=== PATIENT | male | born 1975 | race Caucasian/White ===

== ENCOUNTER → 2019-08-07 13:27 | Outpatient (BNVA) | payer BC, SELFPAY | PROVIDERS: Family Provider Nurse Practitioner; PCP Nurse Practitioner; Visit Provider Specialist | DX: G43.711 Chronic migraine without aura, intractable, with status migrainosus (principal); F07.81 Postconcussional syndrome | CPT/HCPCS: 99213 ==

== ENCOUNTER → 2019-11-15 10:34 | Outpatient (BNVA) | payer BC, SELFPAY | PROVIDERS: Family Provider Nurse Practitioner; PCP Nurse Practitioner; Visit Provider Family Medicine | DX: M10.9 Gout, unspecified (principal); R05 Cough; Z20.828 Contact with and (suspected) exposure to other viral communicable diseases; M10.079 Idiopathic gout, unspecified ankle and foot; E78.5 Hyperlipidemia, unspecified | CPT/HCPCS: 80061; 84550; 85025; 87635 ==

== ENCOUNTER → 2020-02-03 09:15 | Outpatient (BNVA) | payer BC, SELFPAY | PROVIDERS: Family Provider Nurse Practitioner; PCP Nurse Practitioner; Visit Provider Specialist | DX: G43.711 Chronic migraine without aura, intractable, with status migrainosus (principal) | CPT/HCPCS: 99212 ==

== ENCOUNTER → 2020-03-26 17:33 | Outpatient (BNVA) | payer BC, SELFPAY | PROVIDERS: Family Provider Nurse Practitioner; PCP Nurse Practitioner; Visit Provider Nurse Practitioner Family | DX: Z11.59 Encounter for screening for other viral diseases (principal) | CPT/HCPCS: 87635 ==

== ENCOUNTER 2020-03-30 13:19 | Outpatient (CLI) | payer BC, SELFPAY ==
--- NOTE | 2020-03-30 13:25 | XR_ITS ---
WS: [id number] THORACIC SPINE TECHNIQUE: 3 views of the thoracic spine CLINICAL INFORMATION: Pain flank COMPARISON: None. FINDINGS: Mild thoracic curve. No acute appearing compression fractures. Disc space heights and vertebral body heights are well preserved. No acute thoracic spine findings. XR/XR thoracic spine 3V* [id number] IMPRESSION: Mild thoracic curve. No acute thoracic spine findings
--- NOTE | 2020-03-30 13:25 | XR_ITS ---
WS: [id number] LUMBAR SPINE TECHNIQUE: 3 views of the lumbar spine CLINICAL INFORMATION: pain flank COMPARISON: None. FINDINGS: Five [id number]-[id number] lumbar vertebral bodies. Mild lumbar curve convex left. Disc space heights verte bral body heights are well preserved. Mild facet arthropathy L5-S1. No spondylolisthesis. Visualized sacroiliac joints are normal. Normal visualized soft tissues. Partially visualized bowel gas pattern is normal. XR/XR lumbar spine 2-3V* [id number] IMPRESSION: 1. Mild lumbar curve convex left. 2. Disc space heights and vertebral body heights well-preserved. 3. Mild facet arthropathy L5-S1.
== END 2020-03-30 13:20 | disposition home or self-care (01) ==
LOC: RADWPI 13:23
PROVIDERS: Family Provider Nurse Practitioner; PCP Nurse Practitioner; Visit Provider Nurse Practitioner
DX: R10.9 Unspecified abdominal pain (principal); M47.817 Spondylosis without myelopathy or radiculopathy, lumbosacral region
CPT/HCPCS: 72072; 72100; 81000; 85025

== ENCOUNTER → 2020-07-06 09:41 | Outpatient (BNVA) | payer BC, SELFPAY | PROVIDERS: Family Provider Nurse Practitioner; PCP Nurse Practitioner; Visit Provider Specialist | DX: G43.711 Chronic migraine without aura, intractable, with status migrainosus (principal); R20.0 Anesthesia of skin; R20.2 Paresthesia of skin | CPT/HCPCS: 99213 ==

== ENCOUNTER → 2020-07-10 09:09 | Outpatient (BNVA) | payer BC, SELFPAY | PROVIDERS: Family Provider Nurse Practitioner; PCP Nurse Practitioner; Visit Provider Nurse Practitioner | DX: R20.0 Anesthesia of skin (principal); R20.2 Paresthesia of skin; G43.711 Chronic migraine without aura, intractable, with status migrainosus | CPT/HCPCS: 80053; 84443 ==

== ENCOUNTER → 2021-03-08 15:26 | Outpatient (BNVA) | payer BC, SELFPAY | PROVIDERS: Family Provider Nurse Practitioner; PCP Nurse Practitioner; Visit Provider Nurse Practitioner Family | DX: B35.4 Tinea corporis (principal) | CPT/HCPCS: 80053 ==

== ENCOUNTER → 2021-06-25 18:37 | Outpatient (BNVA) | payer BC, SELFPAY | PROVIDERS: Family Provider Nurse Practitioner; PCP Nurse Practitioner; Visit Provider Registered Nurse Neonatal Intensive Care | DX: Z20.822 Contact with and (suspected) exposure to COVID-19 (principal); R05.9 Cough, unspecified; R51.9 Headache, unspecified | CPT/HCPCS: 87635; 87880 ==

== ENCOUNTER → 2022-01-22 11:12 | Outpatient (BNVA) | payer BC, SELFPAY | PROVIDERS: Family Provider Nurse Practitioner; PCP Nurse Practitioner; Visit Provider Registered Nurse Neonatal Intensive Care | DX: Z20.822 Contact with and (suspected) exposure to COVID-19 (principal) | CPT/HCPCS: 87426 ==

== ENCOUNTER → 2024-05-23 11:21 | Outpatient (BNVA) | payer BC, SELFPAY | PROVIDERS: Family Provider Nurse Practitioner; PCP Nurse Practitioner Family; Visit Provider Nurse Practitioner Family | DX: J02.9 Acute pharyngitis, unspecified (principal) | CPT/HCPCS: 87880 ==